=== PATIENT | female | born 1930 | race Caucasian/White ===

== ENCOUNTER → 2016-09-05 | Outpatient (CLI) | payer MEDICARE, BC ==
[~2016-09-05] MED LIST: AC325T PO; ASPI-586 PO; BENZ-22 PO; CALC1TAB29 PO; CIPR-226 PO; CYAN1TAB26 PO; FOLI-88 PO; LACT1CAP62 PO; LACT1CAP8 PO; LEVO75TA PO; LORA-102 PO; LORA-404 PO; LORA10TA76 PO; MECL-105 PO; ONDA4TAB8 PO; PSYL0.525 PO; RIVA15TA2 PO; RIVA20TA PO; SMV20T PO; TRAM-25 PO; WARF2TAB PO; WRF2T PO
== END ==
LOC: LAB 11:33
PROVIDERS: ATTEND Family Medicine
DX: Z51.81 Encounter for therapeutic drug level monitoring (principal); Z79.01 Long term (current) use of anticoagulants
CPT/HCPCS: 36415; 85610

== ENCOUNTER → 2016-10-06 | Outpatient (CLI) | payer MEDICARE, BC | LOC: LAB 13:59 | PROVIDERS: ATTEND Family Medicine | DX: Z51.81 Encounter for therapeutic drug level monitoring (principal); Z79.01 Long term (current) use of anticoagulants | CPT/HCPCS: 36415; 85610 ==

== ENCOUNTER → 2016-11-03 | Outpatient (CLI) | payer MEDICARE, BC | LOC: LAB 11:29 | PROVIDERS: ATTEND Family Medicine | DX: Z51.81 Encounter for therapeutic drug level monitoring (principal); Z79.01 Long term (current) use of anticoagulants | CPT/HCPCS: 36415; 85610 ==

== ENCOUNTER → 2016-11-04 | Outpatient (CLI) | payer MEDICARE, BC | LOC: RAD 11:19 | PROVIDERS: ATTEND Family Medicine | DX: J20.2 Acute bronchitis due to streptococcus (principal) | CPT/HCPCS: 71020 ==

== ENCOUNTER → 2016-11-26 | Outpatient (CLI) | payer MEDICARE, BC ==
[2016-11-26 19:19] LABS: BASOPHILS % (AUTO) 1 % (0-2); EOSINOPHILS # (AUTO) 0.4 10^3uL; EOSINOPHILS % (AUTO) 5 % (0-4); LYMPHOCYTES # (AUTO) 2.4 X10^3; MEAN CORPUSCULAR HEMOGLOBIN 28.4 PG (26.0-34.0); MEAN CORPUSCULAR HGB CONC 32.6 g/dL (31.0-37.0); MEAN CORPUSCULAR VOLUME 87 FL (80-100); MEAN PLATELET VOLUME 10.5 FL (6.0-9.5); MONOCYTES # (AUTO) 0.9 X10^3; MONOCYTES % (AUTO) 11 % (3-11); NEUTROPHILS # (AUTO) 4.1 X10^3; NEUTROPHILS % (AUTO) 53 % (51-67); PLATELET COUNT 182 10^3uL (150-450)
[2016-11-26 19:56] LABS: ERYTHROCYTE SEDIMENTATION RT* 13 mm/hr (0-23)
== END ==
LOC: LAB 19:02
PROVIDERS: ATTEND Physician Assistant
DX: L08.9 Local infection of the skin and subcutaneous tissue, unspecified (principal)
CPT/HCPCS: 36415; 85025; 85652

== ENCOUNTER → 2016-11-26 | Outpatient (CLI) | payer MEDICARE, BC ==
[2016-11-26 20:06] VITALS: BP 137/71
--- NOTE | 2016-11-26 20:06 | Urgent Care T Sheet Gen (E) ---
Intake General Temperature (Fahrenheit): 97.8 Pulse: 76 Blood Pressure Systolic: 137 Blood Pressure Diastolic: 71 Respirations: 22 SPO2: 98 Description of Symptoms Patient presents with L lateral ankle pain since yesterday. Patient states she wore a new pair of shoes yesterday. Went to bed with a swollen and painful L ankle. Woke up this AM with a red, painful ankle however the swelling subsided. Can walk normally however pressure to the ankle hurts. No numbness or tingling in the foot. Does have a history of DVT. History of Present Illness Allergies: Coded Allergies: Metronidazole HCl (Verified Allergy, Unknown, "AFFECTED ME EMOTIONALLY", 06/20/16) Penicillins (Verified Allergy, Unknown, HIVES, 06/20/16) Pentazocine Lactate (Verified Allergy, Unknown, NAUSEA-VOMITED, 06/20/16) alendronate sodium (Verified Allergy, Unknown, CHEST PAIN, 06/20/16) amoxicillin (Verified Allergy, Unknown, HIVES, 06/20/16) carbamazepine (Verified Allergy, Unknown, HIVES, 06/20/16) cefazolin sodium (Verified Allergy, Unknown, "CAUSED VAGINAL INFECTION", 06/20/16) cephalexin (Verified Allergy, Unknown, THROAT SWELLED, 06/20/16) erythromycin base (Verified Allergy, Unknown, FLU LIKE SYMPTOMS, 06/20/16) hydrocodone (Verified Allergy, Unknown, "SICK TO STOMACH", 06/20/16) hydroxyzine HCl (Verified Allergy, Unknown, "BOTHERED BLOOD CIRCULATION", 06/20/16) metronidazole (Verified Allergy, Unknown, "AFFECTED ME EMOTIONALLY", 06/20) minocycline (Verified Allergy, Unknown, "TERRIBLE HEADACHES", 07/28/16) oxycodone (Verified Allergy, Unknown, "SICK TO STOMACH", 07/28/16) rofecoxib (Verified Allergy, Unknown, "AFFECTED ME EMOTIONALLY", 07/28/16) scopolamine hydrobromide (Verified Allergy, Unknown, "CAUSED TRANSCIENT GLOBAL AMNESIA", 07/28/16) sulfasalazine (Verified Allergy, Unknown, NAUSEA, 07/28/16) tetracycline (Verified Allergy, Unknown, NAUSEA, 07/28/16) tetracycline HCl (Verified Allergy, Unknown, VOMITED, 07/28/16) valdecoxib (Verified Allergy, Unknown, "MADE MY PACEMAKER WORK OVERTIME. EXTRA HEART BEATS", 07/28/16) Uncoded Allergies: METAL (Allergy, Unknown, 02/06/12) TAPE (Allergy, Unknown, 02/06/12) EES (Adverse Reaction, Unknown, FLU-LIKE SYMPTOMS , 07/28/16) Home Meds Active Scripts Ondansetron (Zofran ODT)4 Mg Tab.rapdis4 Mg PO Q6H PRN NAUSEA #6 TAB Ref 0 Prov:KENISHA KRAUSE DO 07/28/16 Tramadol HCl (Ultram)50 Mg Mnksil09 Mg PO QID PRN SEVERE PAIN #15 TAB Ref 0 Prov:GAURAV SUAREZ MD 07/18/16 Reported Medications Meclizine HCl 25 Mg Tablet1 Tab PO Q 6H PRN Nausea/Vomiting #20 TAB Ref 0 07/28/16 Benzonatate (Tessalon Perles)100 Mg [id number] Mg PO NEEDED PRN COUGH 06/20/16 Warfarin 2 Mg Tablet2 Mg PO DAILY 11/29/15 Lactobacillus Acidophilus (Probiotic)1 Each Capsule1 Cap PO DAILY 07/06/13 Acetaminophen (Tylenol Tab)325 Mg [id number] Mg PO Q6H PRN PAIN 02/06/12 Lorazepam (Ativan)0.5 Mg Tablet0.5 Mg PO DAILY 02/06/12 Simvastatin 20 Mg Kjjgmi52 Mg PO HS 02/06/12 Aspirin (Aspir 81)81 Mg Tablet.dr81 Mg PO DAILY 02/06/12 Calcium Carbonate/Vitamin D3 (Os-Rafa 500+D Caplet)1 Each Tablet1 Tab PO BID@1200 ,1800 02/06/12 Levothyroxine Sodium (Synthroid)75 Mcg Uwuzda15 Mcg PO DAILY 02/06/12 Respiratory Constitutional Symptoms: No syptoms reported Musculoskeletal: Joint pain Skin: Change in color All Other Systems Reviewed Remaining Systems: All other systems reviewed with negative findings Past Norrlyb-Ydpbkq-Sqixfa Hx Patient's Social History Alcohol Use: Denies Use Smoking Status: Never smoker Infectious Disease Exposure: No Recent foreign travel: No Surgeries/Hospitalizations Hospitalization/Surgery Hx: heart caths ( multiple) hysterectomy, eye surgery, hernia repair (multiple), Pacemaker, see attched HX provided by Patient and attached to medical record. Medical history includes: Sleep apnea - uses CPAP, Chronic intermittant vertigo Respiratory Respiratory History: Sleep Apnea, Pulmonary Emboli Comment: C-PAP; Coughs only in AM to clear mucous from upper airway after sleep. Cardiovascular Cardiovascular History: Chest Pain, Hypercholesterolemia, Pacemaker Comment: multiple heart caths, DVT Neuro/Muscular Neuro/Muscular History: Vertigo/fainting, Arthirits, Osteoporosis, Back Problems Comment: 07/18/16-date of most recent fall - complains of persistant rt shoulder jessica Reproductive System Sexually Transmitted Diseases: No Genitouinary Genitourinary History: Burning, Bladder Infection Gastrointestinal GI/Endocrine History: Thyroid disorder, Nausea, Diarrhea Comment: Pt not best historian of extensive medical HX Diabetes Diabetes: NIDDM Diet controlled Onset: between 1994 and 2002 HEENT Impaired Vision: Glasses Hearing Impaired: None Integumentary Integumentary History: None Comment: "itchy scalp with little bumps" Cancer History of Cancer?: No Psychosocial Behavior Disorders: None Blood Transfusions Hx of Blood transfusions: No Physical Exam Physical Exam General Appearance: WD/WN No apparent distress Skin Exam: Other (redness is noted along the L lateral malleolus. no warmth or edema is noted to the area.) Extremity Exam: Full range of motion (in L ankle. no pain with movement.) No pedal edema No calf tenderness Tenderness (tenderness along the L lateral malleolus and surrounding tissue.)No Homam's sign Neurologic/Psychiatric Exam: No motor deficits (normal gait) No sensory deficits Progress/Orders Progress Note: Progress Note CBC was unremarkable. Sed rate was also unremarkable. Departure Urgent Care Impression Impression: Primary Impression: Ankle pain, left Qualified Code: M25.572 - Pain in left ankle and joints of left foot Departure Disposition: 01 HOME OR SELF-CARE Condition: Stable Referrals: AIME LEACH MD (PCP) Additional Instructions: I was most concerned with a possible skin infection or gout causing her symptoms. Lab was unremarkable therefore I believe her ankle pain and redness is due to irritation from her new pair of shoes. Instructed patient to elevate the foot, ice the area and take Tylenol as directed F/U with PCP as needed or present to ER if symptoms worsen. No calf tenderness and negative laura's sign therefore DVT is low on my differential. Patient understands DC instructions. All questions were answered. End of report . KAMAR VALENTIN Nov 26, 2016 19:59
== END ==
LOC: MHUC 18:23
PROVIDERS: ATTEND Physician Assistant
DX: M25.572 Pain in left ankle and joints of left foot (principal)
CPT/HCPCS: 99213

== ENCOUNTER → 2016-12-04 | Outpatient (CLI) | payer MEDICARE, BC | LOC: LAB 11:20 | PROVIDERS: ATTEND Family Medicine | DX: Z51.81 Encounter for therapeutic drug level monitoring (principal); Z79.01 Long term (current) use of anticoagulants | CPT/HCPCS: 36415; 85610 ==

== ENCOUNTER → 2016-12-09 | Outpatient (CLI) | payer MEDICARE, BC ==
--- NOTE | 2016-12-09 12:59 | Diagnostic Imaging Report ---
PROCEDURE: CT chest without contrast. TECHNIQUE: Multiple contiguous axial images were obtained through the chest without the use of intravenous contrast. INDICATION: Productive bronchitis. FINDINGS: The lungs are well-aerated. There are no infiltrates present. No masses are demonstrated. No evidence of bronchiectasis. No findings to indicate cystic bullous changes. No pleural effusion or pericardial effusion. Aorta is calcified without aneurysm. No mediastinal or hilar adenopathy of pathologic size. IMPRESSION: 1. Atherosclerotic changes of the aorta. 2. Lungs are well-aerated and clear without evidence of inflammatory process or bronchiectasis. Dictated by: Dictated on workstation # [id number]
== END ==
LOC: RAD 10:09
PROVIDERS: ATTEND Family Medicine
DX: J41.8 Mixed simple and mucopurulent chronic bronchitis (principal)
CPT/HCPCS: 71250

== ENCOUNTER → 2017-01-05 | Outpatient (CLI) | payer MEDICARE, BC | LOC: LAB 10:26 | PROVIDERS: ATTEND Family Medicine | DX: Z51.81 Encounter for therapeutic drug level monitoring (principal); Z79.01 Long term (current) use of anticoagulants | CPT/HCPCS: 36415; 85610 ==